=== PATIENT | female | born 1970 | race Caucasian/White ===

== ENCOUNTER 2017-07-25 11:42 | Emergency (ER) | payer MEDICAID ==
[~2017-07-25] VITALS: Ht 167.6 cm; Wt 78.0 kg
[~2017-07-25 11:42] MED LIST: CYCL-1 PO
[2017-07-25 11:48] VITALS: BP 133/99
[2017-07-25] MEDS ORDERED: ONDA4TAB9 SL (12:43)
[2017-07-25] MEDS ORDERED: TAM75C PO (12:43)
== END 2017-07-25 13:00 | disposition home or self-care (01) ==
LOC: ER 11:43
DX: B34.9 Viral infection, unspecified (principal); G89.29 Other chronic pain; Z88.0 Allergy status to penicillin; Z88.1 Allergy status to other antibiotic agents
CPT/HCPCS: 99283